=== PATIENT | female | born 1995 | race Caucasian/White ===

== ENCOUNTER → 2017-11-15 | Outpatient (CLI) | payer BC, OTHER ==
[~2017-11-15] MED LIST: AMIT25 PO; ATEN25 PO; Amitriptyline100 MG PO; BIRTHCONTROL; Bactrim Ds Tab1 EACH PO; CEPH500 PO; Cipro500 MG PO; Colace100 MG PO; DICY20 PO; DIPATR PO; Flagyl500 MG PO; HUMULIN; HYDACE5 PO; HYDR1TAB94 MT; Humalog100 UNIT/1; INSLI100I; INSUASPI; INSUASPI SC; INSULANI; INSULANI SQ; INSULANPEN; INSULANPEN SC; K-Dur 20 meq T20 MEQ PO; Keflex500 MG PO; LUPRON DEPOT7.5 MG; METO10 PO; METO50ER PO; METO5A PO; NEXPLANON68 MG SQ; NOVOLIN NPH; Norco 5-325 Ta1 EACH PO; ONDA4ODT MM; OXYACE5T PO; PROM25 PO; Pyridium200 MG PO; READY TO USE E133 ML PR; RXHYDACE PO; RXONDA4ODT MM; RXOXYACE PO; SORBITOL1 ML PO; SULI150 PO; TOUJEO SOL300 UNIT/1 SC; TRAM50 PO; VENL150ER PO; VENL25; Zofran Odt4 MG PO; Zofran Odt8 MG SL; [UNRECOGNIZED DRUG - REMARK]; [UNRECOGNIZED DRUG - REMARK] SQ
[2017-11-15 17:14] LABS: BASOPHILS ABSOLUTE AUTO 0.05 K/mm3 (0.00-0.23); BASOPHILS PERCENT AUTO 1 % (0-2); EOSINOPHILS PERCENT AUTO 1 % (0-6); Hematocrit 42.8 % (33.0-51.0); Hemoglobin 15.1 g/dL (11.5-16.0); IMMATURE GRAN ABSOLUTE AUTO 0.03 K/mm3 (0.00-0.10); IMMATURE GRAN PERCENT AUTO 0 % (0-1); LYMPHOCYTES ABSOLUTE AUTO 2.57 K/mm3 (0.84-5.20); LYMPHOCYTES PERCENT AUTO 30 % (21-46); MONOCYTES ABSOLUTE AUTO 0.53 K/mm3 (0.16-1.47); MONOCYTES PERCENT AUTO 6 % (4-13); Mean Corpuscular HGB 30.3 pg (26.0-34.0); Mean Corpuscular HGB Conc 35.3 g/dL (31.5-36.5); Mean Corpuscular Volume 86 fL (80-100); Mean Platelet Volume 9.3 fL (9.1-12.4); NEUTROPHILS ABSOLUTE AUTO 5.42 K/mm3 (1.96-9.15); NEUTROPHILS PERCENT AUTO 62 % (41-73); Platelet Count 343 K/mm3 (150-400); RDW Standard Deviation 37.6 fL (35.1-46.3); Red Blood Cell Count 4.98 M/mm3 (3.80-5.20)
[2017-11-15 17:38] LABS: Alanine Aminotransfer (ALT/SGP 39 U/L (12-78); Albumin, Blood 3.6 g/dL (3.4-5.0); Albumin/Globulin Ratio 0.8 (0.8-1.8); Alk Phos 128 U/L (40-126); Anion Gap 10 mmol/L (6-16); Aspartate Aminotrans (AST/SGOT 21 U/L (12-37); Bilirubin, Total 0.9 mg/dL (0.1-1.0); Blood Urea Nitrogen 10 mg/dL (8-24); Bun/Creatinine Ratio 11.9 (12.0-20.0); CO2, Blood 25 mmol/L (21-32); Calcium, Blood 9.5 mg/dL (8.5-10.1); Chloride, Blood 102 mmol/L (98-108); Creatinine, Blood 0.84 mg/dL (0.40-1.00); Globulin, Blood 4.3 g/dL (2.2-4.0); Glomerular Filtration Rate >60 (60-); Glucose, Blood 171 mg/dL (70-99); Potassium, Blood 3.6 mmol/L (3.5-5.5); Sodium, Blood 137 mmol/L (136-145); Thyroid Stimulating Hormone 0.505 uIU/mL (0.360-4.800); Total Protein, Blood 7.9 g/dL (6.4-8.2)
== END | disposition home or self-care (01) ==
LOC: LAB EV 17:10
PROVIDERS: Physician Assistant
DX: R10.9 Unspecified abdominal pain (principal)
CPT/HCPCS: 80053; 83690; 84443; 85025

== ENCOUNTER 2017-11-16 11:21 | Emergency (ER) | payer BC, OTHER ==
[~2017-11-16] VITALS: Ht 157.5 cm; Wt 63.5 kg
[~2017-11-16 11:21] MED LIST changes: -Colace100 MG PO; -METO10 PO; -NEXPLANON68 MG SQ; -READY TO USE E133 ML PR; -SORBITOL1 ML PO; -Zofran Odt4 MG PO
[2017-11-16] MEDS ORDERED: Zofran Odt4 MG PO (12:10)
[2017-11-16] MEDS ORDERED: SORBITOL1 ML PO (12:10)
[2017-11-16] MEDS ORDERED: READY TO USE E133 ML PR (12:10)
[2018-07-02] MEDS ORDERED: METO10 PO (02:51)
== END 2017-11-16 12:46 | disposition home or self-care (01) ==
LOC: ER 11:21
DX: K59.00 Constipation, unspecified (principal); E10.9 Type 1 diabetes mellitus without complications; G47.00 Insomnia, unspecified; Z79.899 Other long term (current) drug therapy; Z79.4 Long term (current) use of insulin
CPT/HCPCS: 99283

== ENCOUNTER → 2017-12-08 | Outpatient (CLI) | payer BC, OTHER ==
[~2017-12-08] MED LIST changes: +Colace100 MG PO; +METO10 PO; +NEXPLANON68 MG SQ; +READY TO USE E133 ML PR; +SORBITOL1 ML PO; +Zofran Odt4 MG PO
== END ==
LOC: LAB EV 15:30
DX: N39.0 Urinary tract infection, site not specified (principal)
CPT/HCPCS: 87077; 87086; 87186

== ENCOUNTER → 2018-01-05 | Outpatient (CLI) | payer BC, OTHER ==
[~2018-01-05] MED LIST changes: -Colace100 MG PO; -METO10 PO; -NEXPLANON68 MG SQ
== END ==
LOC: LAB SHORT 15:14 → LAB EV 15:14
DX: N39.0 Urinary tract infection, site not specified (principal)
CPT/HCPCS: 87086

== ENCOUNTER → 2018-04-04 | Outpatient (CLI) | payer BC, OTHER ==
[2018-04-04 14:36] LABS: BASOPHILS ABSOLUTE AUTO 0.04 K/mm3 (0.00-0.23); BASOPHILS PERCENT AUTO 0 % (0-2); EOSINOPHILS ABSOLUTE AUTO 0.09 K/mm3 (0.00-0.68); EOSINOPHILS PERCENT AUTO 1 % (0-6); Hematocrit 46.1 % (33.0-51.0); Hemoglobin 16.6 g/dL (11.5-16.0); IMMATURE GRAN ABSOLUTE AUTO 0.02 K/mm3 (0.00-0.10); IMMATURE GRAN PERCENT AUTO 0 % (0-1); LYMPHOCYTES ABSOLUTE AUTO 2.79 K/mm3 (0.84-5.20); LYMPHOCYTES PERCENT AUTO 31 % (21-46); MONOCYTES ABSOLUTE AUTO 0.44 K/mm3 (0.16-1.47); MONOCYTES PERCENT AUTO 5 % (4-13); Mean Corpuscular HGB 30.2 pg (26.0-34.0); Mean Corpuscular Volume 84 fL (80-100); Mean Platelet Volume 9.7 fL (9.1-12.4); NEUTROPHILS PERCENT AUTO 62 % (41-73); Platelet Count 325 K/mm3 (150-400); RDW Coefficient Variation 11.7 % (11.7-14.2); RDW Standard Deviation 35.2 fL (35.1-46.3); White Blood Cell Count 8.98 K/mm3 (4.00-11.30)
[2018-04-04 14:58] LABS: Alanine Aminotransfer (ALT/SGP 30 U/L (12-78); Albumin, Blood 4.1 g/dL (3.4-5.0); Alk Phos 124 U/L (40-126); Anion Gap 15 mmol/L (6-16); Aspartate Aminotrans (AST/SGOT 19 U/L (12-37); Blood Urea Nitrogen 12 mg/dL (8-24); Bun/Creatinine Ratio 14.8 (12.0-20.0); CO2, Blood 25 mmol/L (21-32); Calcium, Blood 9.7 mg/dL (8.5-10.1); Chloride, Blood 100 mmol/L (98-108); Creatinine, Blood 0.81 mg/dL (0.40-1.00); Globulin, Blood 4.2 g/dL (2.2-4.0); Glomerular Filtration Rate >60 (60-); Glucose, Blood 262 mg/dL (70-99); Potassium, Blood 3.7 mmol/L (3.5-5.5); Sodium, Blood 140 mmol/L (136-145); Thyroid Stimulating Hormone 1.187 uIU/mL (0.360-4.800); Total Protein, Blood 8.3 g/dL (6.4-8.2)
== END ==
LOC: LAB EV 14:33 → LAB SHORT 14:33
PROVIDERS: Physician Assistant
DX: E10.10 Type 1 diabetes mellitus with ketoacidosis without coma (principal); R53.83 Other fatigue
CPT/HCPCS: 80053; 83036; 84443; 85025

== ENCOUNTER 2018-06-30 20:04 | Emergency (ER) | payer BC, OTHER ==
[~2018-06-30] VITALS: Ht 157.5 cm; Wt 59.0 kg
[2018-06-30 21:23] LABS: BASOPHILS ABSOLUTE AUTO 0.04 K/mm3 (0.00-0.23); BASOPHILS PERCENT AUTO 0 % (0-2); EOSINOPHILS ABSOLUTE AUTO 0.11 K/mm3 (0.00-0.68); EOSINOPHILS PERCENT AUTO 1 % (0-6); Hematocrit 47.7 % (33.0-51.0); Hemoglobin 16.3 g/dL (11.5-16.0); IMMATURE GRAN ABSOLUTE AUTO 0.03 K/mm3 (0.00-0.10); IMMATURE GRAN PERCENT AUTO 0 % (0-1); LYMPHOCYTES ABSOLUTE AUTO 3.44 K/mm3 (0.84-5.20); LYMPHOCYTES PERCENT AUTO 34 % (21-46); MONOCYTES ABSOLUTE AUTO 0.71 K/mm3 (0.16-1.47); MONOCYTES PERCENT AUTO 7 % (4-13); Mean Corpuscular HGB 29.4 pg (26.0-34.0); Mean Corpuscular HGB Conc 34.2 g/dL (31.5-36.5); Mean Corpuscular Volume 86 fL (80-100); Mean Platelet Volume 9.5 fL (9.1-12.4); NEUTROPHILS ABSOLUTE AUTO 5.88 K/mm3 (1.96-9.15); NEUTROPHILS PERCENT AUTO 58 % (41-73); Platelet Count 338 K/mm3 (150-400); RDW Coefficient Variation 11.7 % (11.7-14.2); RDW Standard Deviation 37.1 fL (35.1-46.3); Red Blood Cell Count 5.54 M/mm3 (3.80-5.20); White Blood Cell Count 10.21 K/mm3 (4.00-11.30)
[2018-06-30 21:41] LABS: Alanine Aminotransfer (ALT/SGP 31 U/L (12-78); Albumin, Blood 3.7 g/dL (3.4-5.0); Albumin/Globulin Ratio 0.9 (0.8-1.8); Alk Phos 121 U/L (50-136); Anion Gap 8 mmol/L (6-16); Aspartate Aminotrans (AST/SGOT 18 U/L (12-37); Bilirubin, Total 0.8 mg/dL (0.1-1.0); Blood Urea Nitrogen 11 mg/dL (8-24); Bun/Creatinine Ratio 18.4 (12.0-20.0); CO2, Blood 26 mmol/L (21-32); Calcium, Blood 8.5 mg/dL (8.5-10.1); Chloride, Blood 105 mmol/L (98-108); Globulin, Blood 4.2 g/dL (2.2-4.0); Glomerular Filtration Rate >60 (60-); Glucose, Blood 107 mg/dL (70-99); Potassium, Blood 3.6 mmol/L (3.5-5.5); Sodium, Blood 139 mmol/L (136-145); Total Protein, Blood 7.9 g/dL (6.4-8.2)
[2018-06-30 21:51] LABS: Source, Urine Clean Catch
[2018-06-30] MEDS ORDERED: NEXPLANON68 MG SQ (21:51)
[2018-06-30 21:53] LABS: Bilirubin, Urine Neg (Neg); Blood, Urine Neg (Neg); Glucose Qualitative, Urine 4+ (Neg); Ketones, Urine 1+ (Neg); Leukocyte Esterase, Urine 3+ (Neg); Nitrite, Urine Neg (Neg); Protein, Urine 1+ (Neg); Urobilinogen, Urine NORM (Normal)
[2018-06-30 22:00] LABS: Appearance, Urine Clear (Clear); Color, Urine Yellow (P-Yellow)
[2018-06-30 22:07] LABS: Bacteria Few /hpf; Red Blood Cells, Urine Rare /hpf (0-2); Squamous Epithelial Cells Mod /hpf (Few)
[2018-07-01] MEDS ORDERED: Colace100 MG PO (01:21)
[2018-07-02] MEDS ORDERED: METO10 PO (02:51)
== END 2018-07-01 02:15 | disposition home or self-care (01) ==
LOC: ER 20:04
PROVIDERS: Emergency Medicine
DX: K59.00 Constipation, unspecified (principal); N83.201 Unspecified ovarian cyst, right side; R07.9 Chest pain, unspecified; E11.9 Type 2 diabetes mellitus without complications; Z79.899 Other long term (current) drug therapy; Z79.4 Long term (current) use of insulin
CPT/HCPCS: 36415; 74177; 76830; 76856; 80053; 81001; 81025; 85025; 87077; 87086; 87147; 87186; 96374; 96375; 99284-25; J1885; J2405; J3010; Q9967

== ENCOUNTER → 2018-12-13 | Outpatient (CLI) | payer BC, OTHER ==
[~2018-12-13] MED LIST changes: +Colace100 MG PO; +METO10 PO; +NEXPLANON68 MG SQ
== END | disposition home or self-care (01) ==
LOC: LAB SHORT 14:40 → LAB EV 14:40
DX: R19.5 Other fecal abnormalities (principal)
CPT/HCPCS: 87015; 87045; 87046; 87205; 87899

== ENCOUNTER → 2019-02-08 | Outpatient (CLI) | payer BC, OTHER | END | disposition home or self-care (01) | LOC: LAB EV 12:00 → LAB SHORT 12:00 | DX: E10.65 Type 1 diabetes mellitus with hyperglycemia (principal) | CPT/HCPCS: 87086; 87147 ==

== ENCOUNTER → 2019-02-08 | Outpatient (CLI) | payer BC, OTHER ==
[2019-02-08 13:12] LABS: BASOPHILS ABSOLUTE AUTO 0.03 K/mm3 (0.00-0.23); BASOPHILS PERCENT AUTO 0 % (0-2); EOSINOPHILS ABSOLUTE AUTO 0.09 K/mm3 (0.00-0.68); EOSINOPHILS PERCENT AUTO 1 % (0-6); Hematocrit 47.3 % (33.0-51.0); Hemoglobin 16.9 g/dL (11.5-16.0); IMMATURE GRAN ABSOLUTE AUTO 0.02 K/mm3 (0.00-0.10); IMMATURE GRAN PERCENT AUTO 0 % (0-1); LYMPHOCYTES ABSOLUTE AUTO 2.25 K/mm3 (0.84-5.20); LYMPHOCYTES PERCENT AUTO 27 % (21-46); MONOCYTES ABSOLUTE AUTO 0.53 K/mm3 (0.16-1.47); MONOCYTES PERCENT AUTO 6 % (4-13); Mean Corpuscular HGB Conc 35.7 g/dL (31.5-36.5); Mean Corpuscular Volume 84 fL (80-100); Mean Platelet Volume 9.5 fL (9.1-12.4); NEUTROPHILS ABSOLUTE AUTO 5.55 K/mm3 (1.96-9.15); NEUTROPHILS PERCENT AUTO 65 % (41-73); Platelet Count 320 K/mm3 (150-400); RDW Standard Deviation 36.1 fL (35.1-46.3); Red Blood Cell Count 5.64 M/mm3 (3.80-5.20); White Blood Cell Count 8.47 K/mm3 (4.00-11.30)
[2019-02-08 13:34] LABS: Alanine Aminotransfer (ALT/SGP 25 U/L (12-78); Albumin, Blood 4.2 g/dL (3.4-5.0); Alk Phos 142 U/L (40-126); Anion Gap 14 mmol/L (6-16); Aspartate Aminotrans (AST/SGOT 19 U/L (12-37); Bilirubin, Total 0.9 mg/dL (0.1-1.0); Blood Urea Nitrogen 9 mg/dL (8-24); Bun/Creatinine Ratio 12.3 (12.0-20.0); CO2, Blood 25 mmol/L (21-32); Chloride, Blood 100 mmol/L (98-108); Creatinine, Blood 0.73 mg/dL (0.40-1.00); Globulin, Blood 4.2 g/dL (2.2-4.0); Glomerular Filtration Rate >60 (60-); Glucose, Blood 113 mg/dL (70-99); Magnesium, Blood 1.8 mg/dL (1.6-2.4); Potassium, Blood 3.5 mmol/L (3.5-5.5); Sodium, Blood 139 mmol/L (136-145); Total Protein, Blood 8.4 g/dL (6.4-8.2)
== END | disposition home or self-care (01) ==
LOC: LAB SHORT 12:54 → LAB EV 12:54
PROVIDERS: Physician Assistant Medical
DX: E10.65 Type 1 diabetes mellitus with hyperglycemia (principal)
CPT/HCPCS: 80053; 82010; 83605; 83690; 83735; 85025

== ENCOUNTER 2019-05-03 17:21 | Emergency (ER) | payer BC ==
[~2019-05-03] VITALS: Ht 157.5 cm; Wt 59.0 kg
[2019-05-03 18:12] LABS: BASOPHILS ABSOLUTE AUTO 0.03 K/mm3 (0.00-0.23); BASOPHILS PERCENT AUTO 0 % (0-2); EOSINOPHILS ABSOLUTE AUTO 0.11 K/mm3 (0.00-0.68); EOSINOPHILS PERCENT AUTO 1 % (0-6); Hematocrit 45.3 % (33.0-51.0); Hemoglobin 15.4 g/dL (11.5-16.0); IMMATURE GRAN ABSOLUTE AUTO 0.04 K/mm3 (0.00-0.10); IMMATURE GRAN PERCENT AUTO 1 % (0-1); LYMPHOCYTES ABSOLUTE AUTO 2.26 K/mm3 (0.84-5.20); LYMPHOCYTES PERCENT AUTO 28 % (21-46); MONOCYTES ABSOLUTE AUTO 0.51 K/mm3 (0.16-1.47); MONOCYTES PERCENT AUTO 6 % (4-13); Mean Corpuscular HGB 30.2 pg (26.0-34.0); Mean Corpuscular Volume 89 fL (80-100); Mean Platelet Volume 10.2 fL (9.1-12.4); NEUTROPHILS ABSOLUTE AUTO 5.28 K/mm3 (1.96-9.15); NEUTROPHILS PERCENT AUTO 64 % (41-73); Platelet Count 318 K/mm3 (150-400); RDW Coefficient Variation 11.7 % (11.7-14.2); RDW Standard Deviation 37.5 fL (35.1-46.3); White Blood Cell Count 8.23 K/mm3 (4.00-11.30)
[2019-05-03 18:25] LABS: Source, Urine Clean Catch
[2019-05-03 18:31] LABS: Alanine Aminotransfer (ALT/SGP 26 U/L (12-78); Albumin, Blood 4.1 g/dL (3.4-5.0); Alk Phos 126 U/L (50-136); Anion Gap 10 mmol/L (6-16); Aspartate Aminotrans (AST/SGOT 15 U/L (12-37); Bilirubin, Total 0.8 mg/dL (0.1-1.0); Blood Urea Nitrogen 8 mg/dL (8-24); Bun/Creatinine Ratio 12.5 (12.0-20.0); CO2, Blood 25 mmol/L (21-32); Calcium, Blood 8.8 mg/dL (8.5-10.1); Chloride, Blood 97 mmol/L (98-108); Creatinine, Blood 0.64 mg/dL (0.40-1.00); Glomerular Filtration Rate >60 (60-); Glucose, Blood 510 mg/dL (70-99); Potassium, Blood 3.5 mmol/L (3.5-5.5); Sodium, Blood 132 mmol/L (136-145); Total Protein, Blood 8.1 g/dL (6.4-8.2)
[2019-05-03 18:32] LABS: Bilirubin, Urine Neg (Neg); Blood, Urine Neg (Neg); Glucose Qualitative, Urine 4+ (Neg); Ketones, Urine Neg (Neg); Leukocyte Esterase, Urine 2+ (Neg); Nitrite, Urine Neg (Neg); Protein, Urine Neg (Neg); Specific Gravity, Urine 1.005 (1.003-1.022); Urobilinogen, Urine NORM (Normal)
[2019-05-03 18:40] LABS: Appearance, Urine Clear (Clear); Color, Urine Yellow (P-Yellow)
[2019-05-03 18:46] LABS: Red Blood Cells, Urine 0-2 /hpf (0-2); Squamous Epithelial Cells Mod /hpf (Few)
[2019-05-03 18:47] LABS: Bacteria Few /hpf
[2019-05-03 18:51] LABS: Beta-hydroxybutyrate 1.3 mg/dL (0.2-2.8); Glucose, Blood 501 mg/dL (70-99)
[2019-05-03] MEDS ORDERED: TRAZ50 PO (22:08)
[2019-05-03] MEDS ORDERED: LANTUS (22:09)
[2019-05-03] MEDS ORDERED: LINZESS (22:09)
[2019-05-03] MEDS ORDERED: ONDA4ODT MM (22:33)
== END 2019-05-03 22:55 | disposition home or self-care (01) ==
LOC: ER 17:21
PROVIDERS: Physician Assistant
DX: N83.209 Unspecified ovarian cyst, unspecified side (principal); Z87.42 Personal history of other diseases of the female genital tract; E10.9 Type 1 diabetes mellitus without complications; Z91.040 Latex allergy status; Z79.899 Other long term (current) drug therapy
CPT/HCPCS: 36415; 76830; 76856; 80053; 81001; 82010; 82947; 84703; 85025; 86900; 86901; 87077; 87086; 87186; 96361; 96374; 99284-25; A9270; J2405; J7030

== ENCOUNTER → 2019-07-20 | Outpatient (CLI) | payer BC ==
[~2019-07-20] MED LIST changes: +LANTUS; +LINZESS; +TRAZ50 PO
[2019-07-20 16:54] LABS: BASOPHILS ABSOLUTE AUTO 0.04 K/mm3 (0.00-0.23); BASOPHILS PERCENT AUTO 0 % (0-2); EOSINOPHILS ABSOLUTE AUTO 0.13 K/mm3 (0.00-0.68); EOSINOPHILS PERCENT AUTO 1 % (0-6); Hematocrit 41.6 % (33.0-51.0); Hemoglobin 14.8 g/dL (11.5-16.0); IMMATURE GRAN ABSOLUTE AUTO 0.04 K/mm3 (0.00-0.10); IMMATURE GRAN PERCENT AUTO 0 % (0-1); LYMPHOCYTES ABSOLUTE AUTO 2.52 K/mm3 (0.84-5.20); LYMPHOCYTES PERCENT AUTO 26 % (21-46); MONOCYTES ABSOLUTE AUTO 0.42 K/mm3 (0.16-1.47); MONOCYTES PERCENT AUTO 4 % (4-13); Mean Corpuscular HGB 30.1 pg (26.0-34.0); Mean Corpuscular HGB Conc 35.6 g/dL (31.5-36.5); Mean Corpuscular Volume 85 fL (80-100); Mean Platelet Volume 9.7 fL (9.1-12.4); NEUTROPHILS ABSOLUTE AUTO 6.68 K/mm3 (1.96-9.15); NEUTROPHILS PERCENT AUTO 68 % (41-73); Platelet Count 356 K/mm3 (150-400); RDW Coefficient Variation 11.9 % (11.7-14.2); RDW Standard Deviation 36.2 fL (35.1-46.3); Red Blood Cell Count 4.91 M/mm3 (3.80-5.20); White Blood Cell Count 9.83 K/mm3 (4.00-11.30)
[2019-07-20 17:02] LABS: Alanine Aminotransfer (ALT/SGP 19 U/L (12-78); Albumin, Blood 3.7 g/dL (3.4-5.0); Alk Phos 115 U/L (40-126); Anion Gap 11 mmol/L (6-16); Aspartate Aminotrans (AST/SGOT 14 U/L (12-37); Bilirubin, Total 0.6 mg/dL (0.1-1.0); Blood Urea Nitrogen 7 mg/dL (8-24); Bun/Creatinine Ratio 9.6 (12.0-20.0); CO2, Blood 26 mmol/L (21-32); Calcium, Blood 8.4 mg/dL (8.5-10.1); Chloride, Blood 101 mmol/L (98-108); Creatinine, Blood 0.73 mg/dL (0.40-1.00); Globulin, Blood 3.6 g/dL (2.2-4.0); Glomerular Filtration Rate >60 (60-); Glucose, Blood 262 mg/dL (70-99); Potassium, Blood 3.4 mmol/L (3.5-5.5); Sodium, Blood 138 mmol/L (136-145); Total Protein, Blood 7.3 g/dL (6.4-8.2)
== END | disposition home or self-care (01) ==
LOC: LAB EV 16:47 → LAB SHORT 16:47
PROVIDERS: Physician Assistant
DX: R73.9 Hyperglycemia, unspecified (principal); R31.9 Hematuria, unspecified
CPT/HCPCS: 80053; 82010; 85025; 87077; 87086; 87147; 87186

== ENCOUNTER → 2019-12-01 | Outpatient (CLI) | payer BC ==
[2019-12-01 16:07] LABS: BASOPHILS ABSOLUTE AUTO 0.05 K/mm3 (0.00-0.23); BASOPHILS PERCENT AUTO 0 % (0-2); EOSINOPHILS ABSOLUTE AUTO 0.07 K/mm3 (0.00-0.68); EOSINOPHILS PERCENT AUTO 1 % (0-6); Hematocrit 42.7 % (33.0-51.0); Hemoglobin 14.9 g/dL (11.5-16.0); IMMATURE GRAN ABSOLUTE AUTO 0.09 K/mm3 (0.00-0.10); IMMATURE GRAN PERCENT AUTO 1 % (0-1); LYMPHOCYTES ABSOLUTE AUTO 2.13 K/mm3 (0.84-5.20); LYMPHOCYTES PERCENT AUTO 14 % (21-46); MONOCYTES ABSOLUTE AUTO 0.84 K/mm3 (0.16-1.47); MONOCYTES PERCENT AUTO 6 % (4-13); Mean Corpuscular HGB 30.2 pg (26.0-34.0); Mean Corpuscular HGB Conc 34.9 g/dL (31.5-36.5); Mean Corpuscular Volume 87 fL (80-100); Mean Platelet Volume 9.2 fL (9.1-12.4); NEUTROPHILS ABSOLUTE AUTO 11.81 K/mm3 (1.96-9.15); NEUTROPHILS PERCENT AUTO 79 % (41-73); Platelet Count 332 K/mm3 (150-400); RDW Coefficient Variation 11.9 % (11.7-14.2); RDW Standard Deviation 37.6 fL (35.1-46.3); Red Blood Cell Count 4.93 M/mm3 (3.80-5.20); White Blood Cell Count 14.99 K/mm3 (4.00-11.30)
[2019-12-01 16:24] LABS: Anion Gap 13 mmol/L (6-16); Blood Urea Nitrogen 5 mg/dL (8-24); Bun/Creatinine Ratio 6.8 (12.0-20.0); CO2, Blood 23 mmol/L (21-32); Calcium, Blood 8.5 mg/dL (8.5-10.1); Chloride, Blood 100 mmol/L (98-108); Creatinine, Blood 0.73 mg/dL (0.40-1.00); Glomerular Filtration Rate >60 (60-); Glucose, Blood 247 mg/dL (70-99); Potassium, Blood 3.5 mmol/L (3.5-5.5); Sodium, Blood 136 mmol/L (136-145); Thyroid Stimulating Hormone 0.628 uIU/mL (0.360-4.800)
== END | disposition home or self-care (01) ==
LOC: LAB SHORT 16:00 → LAB EV 16:00
PROVIDERS: Physician Assistant Surgical
DX: R00.0 Tachycardia, unspecified (principal); R53.83 Other fatigue
CPT/HCPCS: 80048; 84443; 85025

== ENCOUNTER 2020-03-24 18:42 | Emergency (ER) | payer BC ==
[~2020-03-24] VITALS: Ht 157.5 cm; Wt 68.0 kg
[2020-03-24 19:23] LABS: BASOPHILS ABSOLUTE AUTO 0.02 K/mm3 (0.00-0.23); BASOPHILS PERCENT AUTO 0 % (0-2); EOSINOPHILS ABSOLUTE AUTO 0.05 K/mm3 (0.00-0.68); EOSINOPHILS PERCENT AUTO 1 % (0-6); Hematocrit 42.5 % (33.0-51.0); Hemoglobin 14.3 g/dL (11.5-16.0); IMMATURE GRAN ABSOLUTE AUTO 0.06 K/mm3 (0.00-0.10); IMMATURE GRAN PERCENT AUTO 1 % (0-1); LYMPHOCYTES PERCENT AUTO 23 % (21-46); MONOCYTES ABSOLUTE AUTO 0.75 K/mm3 (0.16-1.47); MONOCYTES PERCENT AUTO 9 % (4-13); Mean Corpuscular HGB Conc 33.6 g/dL (31.5-36.5); Mean Corpuscular Volume 89 fL (80-100); NEUTROPHILS ABSOLUTE AUTO 5.92 K/mm3 (1.96-9.15); NEUTROPHILS PERCENT AUTO 67 % (41-73); Platelet Count 260 K/mm3 (150-400); RDW Coefficient Variation 12.5 % (11.7-14.2); Red Blood Cell Count 4.76 M/mm3 (3.80-5.20)
[2020-03-24 19:31] LABS: Source, Urine Clean Catch
[2020-03-24 19:37] LABS: Appearance, Urine Clear (Clear); Bilirubin, Urine Neg (Neg); Blood, Urine Neg (Neg); Color, Urine Yellow (P-Yellow); Glucose Qualitative, Urine 4+ (Neg); Ketones, Urine 2+ (Neg); Leukocyte Esterase, Urine 1+ (Neg); Nitrite, Urine Neg (Neg); Protein, Urine Neg (Neg); Urobilinogen, Urine NORM (Normal)
[2020-03-24 19:40] LABS: Bacteria Mod /hpf; Red Blood Cells, Urine Rare /hpf (0-2); Squamous Epithelial Cells Mod /hpf (Few); White Blood Cells, Urine 0-2 /hpf (0-5)
[2020-03-24 19:47] LABS: Alanine Aminotransfer (ALT/SGP 23 U/L (12-78); Albumin, Blood 2.7 g/dL (3.4-5.0); Albumin/Globulin Ratio 0.6 (0.8-1.8); Alk Phos 91 U/L (50-136); Anion Gap 11 mmol/L (6-16); Aspartate Aminotrans (AST/SGOT 21 U/L (12-37); Bilirubin, Total 0.4 mg/dL (0.1-1.0); Blood Urea Nitrogen 6 mg/dL (8-24); Bun/Creatinine Ratio 11.6 (12.0-20.0); CO2, Blood 19 mmol/L (21-32); Calcium, Blood 8.4 mg/dL (8.5-10.1); Chloride, Blood 104 mmol/L (98-108); Creatinine, Blood 0.52 mg/dL (0.40-1.00); Globulin, Blood 4.6 g/dL (2.2-4.0); Glomerular Filtration Rate >60 (60-); Glucose, Blood 287 mg/dL (70-99); Potassium, Blood 4.3 mmol/L (3.5-5.5); Sodium, Blood 134 mmol/L (136-145); Total Protein, Blood 7.3 g/dL (6.4-8.2)
[2020-03-24] MEDS ORDERED: METO100ER PO (22:48)
[2020-03-24] MEDS ORDERED: ZOFRAN4 MG PO (22:48)
[2020-03-24] MEDS ORDERED: ONDA4ODT MM (23:21)
== END 2020-03-25 00:30 | disposition home or self-care (01) ==
LOC: ER 18:42
PROVIDERS: Emergency Medicine
DX: O21.1 Hyperemesis gravidarum with metabolic disturbance (principal); Z91.040 Latex allergy status; Z79.899 Other long term (current) drug therapy; Z3A.26 26 weeks gestation of pregnancy
CPT/HCPCS: 36415; 80053; 81001; 83690; 85025; 87086; 96361; 96374; 99284-25; J2405; J7030

== ENCOUNTER → 2021-05-13 | Outpatient (CLI) | payer BC ==
[~2021-05-13] MED LIST changes: +METO100ER PO; +ZOFRAN4 MG PO
[2021-05-14 20:10] LABS: Adenovirus F 40/41 Not Detected (NOT DETECT); Astrovirus Not Detected (NOT DETECT); Campylobacter Sp Not Detected (NOT DETECT); Cryptosporidium Not Detected (NOT DETECT); Cyclospora Cayetanensis Not Detected (NOT DETECT); E. Coli O157 Not Detected (NOT DETECT); Entamoeba Histolytica Not Detected (NOT DETECT); Enteroaggregative E. coli-EAEC Not Detected (NOT DETECT); Enteropathogenic E. coli-EPEC Not Detected (NOT DETECT); Enterotoxigenic E. coli-ETEC Not Detected (NOT DETECT); Giardia Lamblia Not Detected (NOT DETECT); Norovirus GI/GII Not Detected (NOT DETECT); Plesiomonas Shigelloides Not Detected (NOT DETECT); Rotavirus A Not Detected (NOT DETECT); Salmonella Sp Not Detected (NOT DETECT); Sapovirus Not Detected (NOT DETECT); Shiga Toxin-prod E. coli-STEC Not Detected (NOT DETECT); Shigella/Enteroin E. coli-EIEC Not Detected (NOT DETECT); Vibrio Cholerae Not Detected (NOT DETECT); Vibrio Sp Not Detected (NOT DETECT); Yersinia Enterocolitica Not Detected (NOT DETECT)
== END | disposition home or self-care (01) ==
LOC: LAB EV 15:37 → LAB SHORT 15:37
PROVIDERS: Physician Assistant
DX: K58.9 Irritable bowel syndrome, unspecified (principal)
CPT/HCPCS: 0097U; 87324

== ENCOUNTER → 2021-07-10 | Outpatient (CLI) | payer BC ==
[2021-07-12 18:05] LABS: CORONAVIRUS (COVID19) CSH-NRL Negative (Negative)
== END | disposition home or self-care (01) ==
LOC: LAB 18:08 → LAB SHORT 18:08
PROVIDERS: Chiropractor
DX: Z20.822 Contact with and (suspected) exposure to COVID-19 (principal)
CPT/HCPCS: U0003

== ENCOUNTER 2021-10-23 16:41 | Emergency (ER) | payer SELFPAY ==
[~2021-10-23] VITALS: Ht 157.5 cm; Wt 63.5 kg
[2021-10-23 20:51] LABS: Source, Urine Clean Catch
[2021-10-23 20:54] LABS: Appearance, Urine Clear (Clear); Bilirubin, Urine Neg (Neg); Blood, Urine Neg (Neg); Color, Urine Yellow (P-Yellow); Glucose Qualitative, Urine 4+ (Neg); Ketones, Urine 3+ (Neg); Leukocyte Esterase, Urine Neg (Neg); Nitrite, Urine Neg (Neg); Protein, Urine Neg (Neg); Specific Gravity, Urine 1.005 (1.003-1.022); Urobilinogen, Urine NORM (Normal)
[2021-10-23 20:56] LABS: BASOPHILS ABSOLUTE AUTO 0.02 K/mm3 (0.00-0.23); BASOPHILS PERCENT AUTO 0 % (0-2); EOSINOPHILS ABSOLUTE AUTO 0.01 K/mm3 (0.00-0.68); EOSINOPHILS PERCENT AUTO 0 % (0-6); Hematocrit 37.9 % (33.0-51.0); Hemoglobin 13.4 g/dL (11.5-16.0); IMMATURE GRAN ABSOLUTE AUTO 0.02 K/mm3 (0.00-0.10); IMMATURE GRAN PERCENT AUTO 0 % (0-1); LYMPHOCYTES ABSOLUTE AUTO 0.96 K/mm3 (0.84-5.20); LYMPHOCYTES PERCENT AUTO 17 % (21-46); MONOCYTES ABSOLUTE AUTO 0.64 K/mm3 (0.16-1.47); MONOCYTES PERCENT AUTO 12 % (4-13); Mean Corpuscular HGB 28.9 pg (26.0-34.0); Mean Corpuscular HGB Conc 35.4 g/dL (31.5-36.5); Mean Corpuscular Volume 82 fL (80-100); NEUTROPHILS ABSOLUTE AUTO 3.93 K/mm3 (1.96-9.15); NEUTROPHILS PERCENT AUTO 70 % (41-73); Platelet Count 253 K/mm3 (150-400); RDW Coefficient Variation 11.3 % (11.7-14.2); RDW Standard Deviation 33.5 fL (35.1-46.3); Red Blood Cell Count 4.63 M/mm3 (3.80-5.20); White Blood Cell Count 5.58 K/mm3 (4.00-11.30)
[2021-10-23 21:11] LABS: Alanine Aminotransfer (ALT/SGP 20 U/L (12-78); Albumin, Blood 3.6 g/dL (3.4-5.0); Albumin/Globulin Ratio 1.1 (0.8-1.8); Alk Phos 100 U/L (50-136); Anion Gap 11 mmol/L (6-16); Aspartate Aminotrans (AST/SGOT 16 U/L (12-37); Blood Urea Nitrogen 10 mg/dL (8-24); Bun/Creatinine Ratio 12.8 (12.0-20.0); CO2, Blood 24 mmol/L (21-32); Calcium, Blood 8.9 mg/dL (8.5-10.1); Chloride, Blood 104 mmol/L (98-108); Creatinine, Blood 0.78 mg/dL (0.40-1.00); Globulin, Blood 3.3 g/dL (2.2-4.0); Glomerular Filtration Rate >60 (60-); Glucose, Blood 152 mg/dL (70-99); Potassium, Blood 3.6 mmol/L (3.5-5.5); Sodium, Blood 139 mmol/L (136-145); Total Protein, Blood 6.9 g/dL (6.4-8.2)
[2021-10-23] MEDS ORDERED: LINZESS290 MCG PO (21:44)
[2021-10-23] MEDS ORDERED: TRAZ100 PO (21:45)
[2021-10-23 22:35] LABS: Influenza A, PCR NEGATIVE (NEGATIVE); Influenza B, PCR NEGATIVE (NEGATIVE); Resp Syncytial Virus, PCR NEGATIVE (NEGATIVE)
[2021-10-23 22:40] LABS: SARS-Cov-2 (COVID-19) PCR, MMC POSITIVE (NEGATIVE)
== END 2021-10-23 22:22 | disposition short-term general hospital (02) ==
LOC: ER 16:41
PROVIDERS: Emergency Medicine
DX: M54.6 Pain in thoracic spine (principal); E10.40 Type 1 diabetes mellitus with diabetic neuropathy, unspecified; N80.9 Endometriosis, unspecified; Z91.040 Latex allergy status; Z79.4 Long term (current) use of insulin; Z79.899 Other long term (current) drug therapy
CPT/HCPCS: 0241U; 36415; 71045; 80053; 81003; 83605; 85025; 96372; 99285-25; A9270; J1170; J7030

== ENCOUNTER 2022-02-05 14:07 | Emergency (ER) | payer BC ==
[~2022-02-05] VITALS: Ht 157.5 cm; Wt 61.2 kg
[~2022-02-05 14:07] MED LIST changes: +LINZESS290 MCG PO; +TRAZ100 PO
[2022-02-05] MEDS ORDERED: HYDROCODONE BIT10 MG PO (16:06)
[2022-02-05] MEDS ORDERED: HYDR1TAB94 PO (17:01)
== END 2022-02-05 16:15 | disposition home or self-care (01) ==
LOC: ER 14:07
DX: M53.3 Sacrococcygeal disorders, not elsewhere classified (principal); E10.40 Type 1 diabetes mellitus with diabetic neuropathy, unspecified; Z91.040 Latex allergy status; Z79.4 Long term (current) use of insulin; Z79.899 Other long term (current) drug therapy
CPT/HCPCS: 72220; A9270; J1885

== ENCOUNTER → 2022-03-07 | Outpatient (CLI) | payer BC ==
[~2022-03-07] MED LIST changes: +HYDR1TAB94 PO; +HYDROCODONE BIT10 MG PO
[2022-03-07 15:34] LABS: SARS-Cov-2 (COVID-19) PCR, MMC NEGATIVE (NEGATIVE)
== END ==
LOC: LAB SHORT 14:17
PROVIDERS: Physician Assistant
DX: Z20.822 Contact with and (suspected) exposure to COVID-19 (principal)
CPT/HCPCS: U0004

== ENCOUNTER → 2022-05-19 | Outpatient (CLI) | payer BC | END | disposition home or self-care (01) | LOC: LAB SHORT 16:37 → LAB 16:37 | DX: R30.0 Dysuria (principal) | CPT/HCPCS: 87077; 87086; 87186 ==

== ENCOUNTER 2022-07-08 14:03 | Emergency (ER) | payer BC ==
[~2022-07-08] VITALS: Ht 157.5 cm; Wt 68.0 kg
[~2022-07-08 14:03] MED LIST changes: +Cleocin HCl300 MG PO
== END 2022-07-08 15:55 | disposition home or self-care (01) ==
LOC: ER 14:03
DX: T81.41XA Infection following a procedure, superficial incisional surgical site, initial encounter (principal); T81.31XA Disruption of external operation (surgical) wound, not elsewhere classified, initial encounter; E10.40 Type 1 diabetes mellitus with diabetic neuropathy, unspecified; Y83.9 Surgical procedure, unspecified as the cause of abnormal reaction of the patient, or of later complication, without mention of misadventure at the time of the procedure; Z91.040 Latex allergy status; Z79.899 Other long term (current) drug therapy; Z79.4 Long term (current) use of insulin; Z98.1 Arthrodesis status
CPT/HCPCS: 12020; 99282-25

== ENCOUNTER → 2022-12-31 | Outpatient (CLI) | payer BC ==
[~2022-12-31] MED LIST changes: +NEURONTIN300 MG PO
[2022-12-31 14:14] LABS: BASOPHILS ABSOLUTE AUTO 0.04 K/mm3 (0.00-0.23); BASOPHILS PERCENT AUTO 1 % (0-2); EOSINOPHILS ABSOLUTE AUTO 0.12 K/mm3 (0.00-0.68); EOSINOPHILS PERCENT AUTO 1 % (0-6); Hematocrit 44.9 % (33.0-51.0); Hemoglobin 15.9 g/dL (11.5-16.0); IMMATURE GRAN ABSOLUTE AUTO 0.08 K/mm3 (0.00-0.10); IMMATURE GRAN PERCENT AUTO 1 % (0-1); LYMPHOCYTES ABSOLUTE AUTO 2.19 K/mm3 (0.84-5.20); LYMPHOCYTES PERCENT AUTO 26 % (21-46); MONOCYTES ABSOLUTE AUTO 0.72 K/mm3 (0.16-1.47); MONOCYTES PERCENT AUTO 9 % (4-13); Mean Corpuscular HGB 30.2 pg (26.0-34.0); Mean Corpuscular HGB Conc 35.4 g/dL (31.5-36.5); Mean Corpuscular Volume 85 fL (80-100); Mean Platelet Volume 9.6 fL (9.1-12.4); NEUTROPHILS ABSOLUTE AUTO 5.18 K/mm3 (1.96-9.15); NEUTROPHILS PERCENT AUTO 62 % (41-73); Platelet Count 285 K/mm3 (150-400); RDW Coefficient Variation 13.2 % (11.7-14.2); RDW Standard Deviation 40.6 fL (35.1-46.3); Red Blood Cell Count 5.27 M/mm3 (3.80-5.20); White Blood Cell Count 8.33 K/mm3 (4.00-11.30)
[2022-12-31 14:23] LABS: Albumin, Blood 3.9 g/dL (3.4-5.0); Albumin/Globulin Ratio 0.9 (0.8-1.8); Bilirubin, Total 1.2 mg/dL (0.1-1.0); Bun/Creatinine Ratio 13.4 (12.0-20.0); Calcium, Blood 9.2 mg/dL (8.5-10.1); Creatinine, Blood 0.97 mg/dL (0.40-1.00); Globulin, Blood 4.5 g/dL (2.2-4.0); Potassium, Blood 3.8 mmol/L (3.5-5.5); Total Protein, Blood 8.4 g/dL (6.4-8.2)
== END | disposition home or self-care (01) ==
LOC: LAB SHORT 14:09
PROVIDERS: Chiropractor
DX: R10.11 Right upper quadrant pain (principal)
CPT/HCPCS: 80053; 83690; 85025

== ENCOUNTER 2023-06-23 06:22 | Day surgery (SDC) | payer BC ==
[~2023-06-23] VITALS: Ht 157.5 cm; Wt 70.2 kg
[2023-06-23] MEDS ORDERED: OMEP20ER (06:44)
[2023-06-23] MEDS ORDERED: FAMO10 (06:45)
[2023-06-23] MEDS ORDERED: Cyclobenzaprine5 MG (06:46)
[2023-06-23] MEDS ORDERED: HUMALOG100 UNIT/1 (06:46)
[2023-06-23 08:35] VITALS: BP 93/66
--- NOTE | 2023-06-23 08:36 | NUR ---
06/23/23 0836 Arabella Valle IV, DC'D WNL, PT TOLERATED DC WELL. CATH INTACT.
== END 2023-06-23 08:37 | disposition home or self-care (01) ==
LOC: ORSCSDS 06:22
PROVIDERS: Internal Medicine Gastroenterology
PROC: 0DBE8ZX Excision of Large Intestine, Via Natural or Artificial Opening Endoscopic, Diagnostic (ICD-10-PCS; principal; 2023-06-23 07:30)
PROC: 0DB98ZX Excision of Duodenum, Via Natural or Artificial Opening Endoscopic, Diagnostic (ICD-10-PCS; principal; 2023-06-23 07:30)
PROC: 0DB78ZX Excision of Stomach, Pylorus, Via Natural or Artificial Opening Endoscopic, Diagnostic (ICD-10-PCS; principal; 2023-06-23 07:30)
DX: R19.7 Diarrhea, unspecified (principal); K21.00 Gastro-esophageal reflux disease with esophagitis, without bleeding; R10.9 Unspecified abdominal pain; K59.00 Constipation, unspecified; E10.8 Type 1 diabetes mellitus with unspecified complications; K76.0 Fatty (change of) liver, not elsewhere classified; Z79.899 Other long term (current) drug therapy; Z79.4 Long term (current) use of insulin
CPT/HCPCS: 82947; 88305; 88342; J2704; J7120

== ENCOUNTER 2023-07-14 11:53 | Emergency (ER) | payer BC ==
[~2023-07-14] VITALS: Ht 157.5 cm; Wt 69.8 kg
[~2023-07-14 11:53] MED LIST changes: +Cyclobenzaprine5 MG; +FAMO10; +HUMALOG100 UNIT/1; +OMEP20ER
[2023-07-14] MEDS ORDERED: AMOX-CLAV 875-1 EAC5 PO (13:02)
[2023-07-14] MEDS ORDERED: LINZESS145 MCG PO (13:03)
[2023-07-14 13:45] LABS: BASOPHILS ABSOLUTE AUTO 0.06 K/mm3 (0.00-0.23); BASOPHILS PERCENT AUTO 1 % (0-2); EOSINOPHILS ABSOLUTE AUTO 0.31 K/mm3 (0.00-0.68); EOSINOPHILS PERCENT AUTO 3 % (0-6); Hematocrit 39.8 % (33.0-51.0); Hemoglobin 13.7 g/dL (11.5-16.0); IMMATURE GRAN ABSOLUTE AUTO 0.03 K/mm3 (0.00-0.10); IMMATURE GRAN PERCENT AUTO 0 % (0-1); LYMPHOCYTES PERCENT AUTO 25 % (21-46); MONOCYTES ABSOLUTE AUTO 0.81 K/mm3 (0.16-1.47); MONOCYTES PERCENT AUTO 7 % (4-13); Mean Corpuscular HGB 29.8 pg (26.0-34.0); Mean Corpuscular HGB Conc 34.4 g/dL (31.5-36.5); Mean Corpuscular Volume 87 fL (80-100); Mean Platelet Volume 9.9 fL (9.1-12.4); NEUTROPHILS ABSOLUTE AUTO 7.54 K/mm3 (1.96-9.15); NEUTROPHILS PERCENT AUTO 65 % (41-73); Platelet Count 323 K/mm3 (150-400); RDW Coefficient Variation 12.1 % (11.7-14.2); RDW Standard Deviation 38.2 fL (35.1-46.3); White Blood Cell Count 11.65 K/mm3 (4.00-11.30)
[2023-07-14 13:49] LABS: Source, Urine Clean Catch
[2023-07-14 13:52] LABS: Appearance, Urine Clear (Clear); Bilirubin, Urine Neg (Neg); Blood, Urine Neg (Neg); Color, Urine Yellow (P-Yellow); Glucose Qualitative, Urine 1+ (Neg); Ketones, Urine Neg (Neg); Leukocyte Esterase, Urine Neg (Neg); Nitrite, Urine Neg (Neg); Protein, Urine 1+ (Neg); Specific Gravity, Urine 1.025 (1.003-1.022); Urobilinogen, Urine NORM (Normal)
[2023-07-14 14:11] LABS: Albumin, Blood 3.6 g/dL (3.4-5.0); Albumin/Globulin Ratio 0.8 (0.8-1.8); Bilirubin, Total 0.8 mg/dL (0.1-1.0); Bun/Creatinine Ratio 14.1 (12.0-20.0); Calcium, Blood 9.2 mg/dL (8.5-10.1); Creatinine, Blood 0.71 mg/dL (0.40-1.00); Globulin, Blood 4.3 g/dL (2.2-4.0); Potassium, Blood 3.5 mmol/L (3.5-5.5); Total Protein, Blood 7.9 g/dL (6.4-8.2)
[2023-07-14 15:21] VITALS: BP 121/86
[2023-07-14 15:52] LABS: Candida species (DNA Probe) Negative (NEGATIVE); G. vaginalis (DNA Probe) Negative (NEGATIVE); T. vaginalis (DNA Probe) Negative (NEGATIVE)
[2023-07-14] MEDS ORDERED: AMOCLA875 PO (16:27)
[2023-07-14] MEDS ORDERED: DOXY100 PO (16:27)
[2023-07-14] MEDS ORDERED: Percocet 5-3251 EACH PO (16:38)
[2023-07-14] MEDS ORDERED: ONDA4ODT MM (16:38)
[2023-07-16 05:12] LABS: CHLAMYDIA TRACHOMATIS, NAA Negative (Negative)
== END 2023-07-14 16:47 | disposition home or self-care (01) ==
LOC: ER 11:53
PROVIDERS: Student in an Organized Health Care Education/Training Program
DX: N76.4 Abscess of vulva (principal); Z91.040 Latex allergy status; Z79.899 Other long term (current) drug therapy; Z79.4 Long term (current) use of insulin; E11.9 Type 2 diabetes mellitus without complications
CPT/HCPCS: 56405; 72193; 80053; 81025; 85025; 87480; 87491; 87510; 87591; 87660; 96374-59; 96375-59; 99284-25; A9270; J1885; J3010; Q9967

== ENCOUNTER 2023-10-23 00:30 | Emergency (ER) | payer BC ==
[~2023-10-23] VITALS: Ht 157.5 cm; Wt 63.5 kg
[~2023-10-23 00:30] MED LIST changes: +AMOCLA875 PO; +AMOX-CLAV 875-1 EAC5 PO; +DOXY100 PO; +LINZESS145 MCG PO; +Percocet 5-3251 EACH PO
[2023-10-23 01:56] LABS: Base Excess Venous -1.4 mmol/L; Bicarbonate Venous 23.5 mmol/L (24.0-30.0); PCO2 Venous 37.6 mmHg (38-42)
[2023-10-23 01:58] LABS: BASOPHILS ABSOLUTE AUTO 0.04 K/mm3 (0.00-0.23); BASOPHILS PERCENT AUTO 1 % (0-2); EOSINOPHILS ABSOLUTE AUTO 0.11 K/mm3 (0.00-0.68); EOSINOPHILS PERCENT AUTO 2 % (0-6); Hematocrit 41.3 % (33.0-51.0); Hemoglobin 14.2 g/dL (11.5-16.0); IMMATURE GRAN ABSOLUTE AUTO 0.03 K/mm3 (0.00-0.10); IMMATURE GRAN PERCENT AUTO 0 % (0-1); LYMPHOCYTES ABSOLUTE AUTO 2.46 K/mm3 (0.84-5.20); LYMPHOCYTES PERCENT AUTO 33 % (21-46); MONOCYTES ABSOLUTE AUTO 0.48 K/mm3 (0.16-1.47); MONOCYTES PERCENT AUTO 6 % (4-13); Mean Corpuscular HGB Conc 34.4 g/dL (31.5-36.5); Mean Corpuscular Volume 84 fL (80-100); Mean Platelet Volume 9.6 fL (9.1-12.4); NEUTROPHILS ABSOLUTE AUTO 4.39 K/mm3 (1.96-9.15); NEUTROPHILS PERCENT AUTO 58 % (41-73); Platelet Count 246 K/mm3 (150-400); RDW Coefficient Variation 11.6 % (11.7-14.2); RDW Standard Deviation 35.5 fL (35.1-46.3); White Blood Cell Count 7.51 K/mm3 (4.00-11.30)
[2023-10-23 02:17] LABS: Albumin, Blood 3.7 g/dL (3.4-5.0); Albumin/Globulin Ratio 0.9 (0.8-1.8); Beta-hydroxybutyrate 7.1 mg/dL (0.2-2.8); Bilirubin, Total 0.7 mg/dL (0.1-1.0); Bun/Creatinine Ratio 16.1 (12.0-20.0); Calcium, Blood 8.7 mg/dL (8.5-10.1); Creatinine, Blood 0.74 mg/dL (0.40-1.00); Globulin, Blood 4.1 g/dL (2.2-4.0); Magnesium, Blood 1.8 mg/dL (1.6-2.4); Potassium, Blood 3.8 mmol/L (3.5-5.5); Total Protein, Blood 7.8 g/dL (6.4-8.2)
[2023-10-23] MEDS ORDERED: BASAGLAR K100 UNIT/8 SC (02:35)
[2023-10-23 03:45] VITALS: BP 110/68
== END 2023-10-23 03:45 | disposition home or self-care (01) ==
LOC: ER 00:30
PROVIDERS: Emergency Medicine; Student in an Organized Health Care Education/Training Program
DX: E10.65 Type 1 diabetes mellitus with hyperglycemia (principal); Z88.2 Allergy status to sulfonamides; Z91.048 Other nonmedicinal substance allergy status; Z79.899 Other long term (current) drug therapy; Z79.4 Long term (current) use of insulin
CPT/HCPCS: 80053; 82010; 82803; 82947; 83735; 85025; 93005; 93010; 96361; 96374; 99283-25; J1815; J2405; J7030

== ENCOUNTER 2023-11-12 17:38 | Emergency (ER) | payer BC ==
[~2023-11-12] VITALS: Ht 157.5 cm; Wt 68.0 kg
[~2023-11-12 17:38] MED LIST changes: +BASAGLAR K100 UNIT/8 SC
[2023-11-12 18:13] LABS: BASOPHILS ABSOLUTE AUTO 0.02 K/mm3 (0.00-0.23); BASOPHILS PERCENT AUTO 0 % (0-2); EOSINOPHILS ABSOLUTE AUTO 0.17 K/mm3 (0.00-0.68); EOSINOPHILS PERCENT AUTO 2 % (0-6); Hematocrit 33.5 % (33.0-51.0); Hemoglobin 11.5 g/dL (11.5-16.0); IMMATURE GRAN ABSOLUTE AUTO 0.05 K/mm3 (0.00-0.10); IMMATURE GRAN PERCENT AUTO 0 % (0-1); LYMPHOCYTES ABSOLUTE AUTO 2.75 K/mm3 (0.84-5.20); LYMPHOCYTES PERCENT AUTO 24 % (21-46); MONOCYTES ABSOLUTE AUTO 0.99 K/mm3 (0.16-1.47); MONOCYTES PERCENT AUTO 9 % (4-13); Mean Corpuscular HGB 29.2 pg (26.0-34.0); Mean Corpuscular HGB Conc 34.3 g/dL (31.5-36.5); Mean Corpuscular Volume 85 fL (80-100); Mean Platelet Volume 9.6 fL (9.1-12.4); NEUTROPHILS PERCENT AUTO 66 % (41-73); Platelet Count 290 K/mm3 (150-400); RDW Standard Deviation 36.5 fL (35.1-46.3); Red Blood Cell Count 3.94 M/mm3 (3.80-5.20); White Blood Cell Count 11.68 K/mm3 (4.00-11.30)
[2023-11-12] MEDS ORDERED: SEMGLEE (Y100 UNIT/2 SQ (18:22)
[2023-11-12 18:41] LABS: Albumin, Blood 3.1 g/dL (3.4-5.0); Albumin/Globulin Ratio 0.8 (0.8-1.8); Bun/Creatinine Ratio 7.8 (12.0-20.0); Calcium, Blood 8.3 mg/dL (8.5-10.1); Creatinine, Blood 1.54 mg/dL (0.40-1.00); Globulin, Blood 3.9 g/dL (2.2-4.0); Potassium, Blood 3.4 mmol/L (3.5-5.5)
[2023-11-12] MEDS ORDERED: HYDROmorphone HCl/Pf 1MG SYR IV ONE ×3 (19:00→22:45)
[2023-11-12] MEDS ORDERED: Ondansetron HCl 2 MG / ML 2ML Vial IV ONE (19:00)
[2023-11-12 19:44] LABS: Source, Urine Clean Catch
[2023-11-12 19:48] LABS: Appearance, Urine Clear (Clear); Bilirubin, Urine Neg (Neg); Blood, Urine Neg (Neg); Color, Urine Yellow (P-Yellow); Glucose Qualitative, Urine 1+ (Neg); Ketones, Urine Neg (Neg); Leukocyte Esterase, Urine Neg (Neg); Nitrite, Urine Neg (Neg); Protein, Urine Neg (Neg); Urobilinogen, Urine NORM (Normal); pH, Urine 6.5 (5.0-8.0)
[2023-11-12 21:02] VITALS: BP 100/61
[2023-11-12] MEDS ORDERED: NS 1,000 ML IV SCH (22:40)
[2023-11-12] MEDS ORDERED: Potassium Chloride 20 MEQ/15 ML UDC PO ONE (22:40)
[2023-11-12] MEDS ORDERED: Ketorolac Tromethamine 30mg Vial IV ONE (22:45)
== END 2023-11-12 23:28 | disposition home or self-care (01) ==
LOC: ER 17:38
PROVIDERS: Physician Assistant
DX: G89.18 Other acute postprocedural pain (principal); Z98.1 Arthrodesis status; N17.9 Acute kidney failure, unspecified; E87.6 Hypokalemia; E10.9 Type 1 diabetes mellitus without complications; Z88.2 Allergy status to sulfonamides; Z91.040 Latex allergy status; Z88.6 Allergy status to analgesic agent; Z79.899 Other long term (current) drug therapy
CPT/HCPCS: 51798; 72131; 80053; 81003; 85025; 96361; 96374; 96375; 96376; 99284-25; A9270; J1170; J1885; J2405; J7030